=== PATIENT | male | born 1930 | race Caucasian/White ===

== ENCOUNTER 2018-07-08 10:34 | Emergency (ER) | payer MEDICARE, OTHER ==
[2018-07-08 11:09] LABS: #Eosinphils 0.1 thou/uL (0.0-0.7); #Lymphocytes 1.9 thou/uL (1.20-3.40); #Monocytes 0.6 thou/uL (0.11-0.59); #Neutrophils 2.2 thou/uL (1.40-6.50); %Basophils 0.4 % (0.0-1.0); %Eosinophils 1.3 % (0.0-10.0); %Lymphocytes 39.8 % (21.0-51.0); %Monocytes 12.5 % (0.0-10.0); Hemoglobin 12.1 g/dL (14.0-18.0); Mean Corpuscular HGB CONC 33.5 g/dL (32.0-36.0); Mean Corpuscular Hemoglobin 31.4 pg (27.0-31.0); Mean Corpuscular Volume 93.8 fL (78.0-98.0); Mean Platelet Volume 9.9 fL (7.4-10.4); Platelet Count 86 thou/uL (130-400); RBC Distribution Width 13.6 % (11.5-14.5); Red Blood Cell (RBC) Count 3.85 mill/uL (4.70-6.10); White Blood Cell (WBC) Count 4.7 thou/uL (4.8-10.8)
[2018-07-08 11:21] LABS: ALT (SGPT) 15 U/L (8-55); AST (SGOT) 21 U/L (5-34); Albumin 4.2 g/dL (3.4-4.8); Alkaline Phosphatase 70 U/L (40-150); Anion Gap 12 mmol/L (10-20); BUN (Urea Nitrogen) 17 mg/dL (8.4-25.7); Bilirubin, Total 0.6 mg/dL (0.2-1.2); CK (CPK) 91 U/L (30-200); Calc. Creatinine Clearance 0 mL/min (70-130); Calcium 9.3 mg/dL (7.8-10.44); Carbon Dioxide 28 mmol/L (23-31); Chloride 100 mmol/L (98-107); Estimated GFR-MDRD 52; Globulin 3.8 g/dL (2.4-3.5); Glucose 107 mg/dL (83-110); Lipase 54 U/L (8-78); Potassium 4.5 mmol/L (3.5-5.1); Sodium 135 mmol/L (136-145)
[2018-07-08 11:24] LABS: CKMB 2.8 ng/mL (0-6.6); Troponin I Less than 0.010 ng/mL (< 0.028)
--- NOTE | 2018-07-08 11:42 | RAD ---
PORTABLE AP CHEST: Date: 07/08/18 HISTORY: Chest pain and lightheadedness. COMPARISON: 11/03/16. FINDINGS: Postsurgical changes related to CABG are again noted. Coronary artery stents again overlie the left c ardiac border. Cardiac silhouette is magnified by projection. Pulmonary vasculature is within normal limits. The lungs are clear. Vascular calcifications seen thoracic aorta. There has been no other int erval change from the prior exam. IMPRESSION: Stable chest without evidence of an acute cardiopulmonary process. POS: TOMASZ
[2018-07-08 13:08] LABS: INR-International Normal Ratio 2.3; PTT 48.4 SEC (22.9-36.1); Prothrombin Time 25.6 SEC (12.0-14.7)
[2018-07-08 13:09] LABS: D-Dimer Test 1.04 *mcg/mL (0.27-0.43)
--- NOTE | 2018-07-08 13:51 | RAD ---
ONE VIEW ABDOMEN: Comparison: None. History: Constipation. FINDINGS: Nonspecific bowel gas pattern. No evidence of pneumoperitoneum in supine projection. Extensive degene rative changes of the lumbar spine with prominent osteophyte formation. IMPRESSION: Nonspecific bowel gas pattern. POS: TOMASZ
== END 2018-07-08 16:44 | disposition home or self-care (01) ==
LOC: ERS 10:34
DX: I48.2 Chronic atrial fibrillation (principal); I11.0 Hypertensive heart disease with heart failure; I50.9 Heart failure, unspecified; R53.83 Other fatigue; I25.10 Atherosclerotic heart disease of native coronary artery without angina pectoris; Z79.899 Other long term (current) drug therapy
CPT/HCPCS: 36415; 71045; 74018; 80053; 82553; 83690; 83735; 83880; 84443; 84484; 85025; 85379; 85610; 85730; 93005

== ENCOUNTER 2018-08-02 12:49 | Outpatient (CLI) | payer MEDICARE, OTHER ==
--- NOTE | 2018-08-04 21:15 | EKG ---
Test Reason : Blood Pressure : / mmHG Vent. Rate : 090 BPM Atrial Rate : 117 BPM P-R Int : 000 ms QRS Dur : 102 ms QT Int : 376 ms P-R-T Axes : 000 089 -08 degrees QTc Int : 459 ms Atrial fibrillation Low voltage QRS Incomplete right bundle branch block Cannot rule out Anteroseptal infarct (cited on or before 25-APR-2013) Abnormal ECG When compared with ECG of 08-JUL-2018 10:39, Nonspecific T wave abnormality, improved in Lateral leads Confirmed by Marbella BLISS ([id number]) on 08/04/2018 9:15:13 PM Referred By: SAMANTA Confirmed By:Marbella BLISS
== END 2018-08-02 12:50 | disposition home or self-care (01) ==
LOC: LABBT 12:49
PROVIDERS: ATTEND Internal Medicine Cardiovascular Disease
DX: Z01.810 Encounter for preprocedural cardiovascular examination (principal); I48.91 Unspecified atrial fibrillation
CPT/HCPCS: 93005; 93010

== ENCOUNTER 2018-08-06 06:04 | Day surgery (SDC) | payer MEDICARE, OTHER ==
[2018-08-02 13:16] VITALS: BMI 32.9
[2018-08-06] MEDS ORDERED: PROPOFOL 200 MG/20 ML VIAL ONE (12:55)
[2018-08-06] MEDS ORDERED: Lidocaine 1% PF 5 ML VIAL ONE (12:55)
--- NOTE | 2018-08-06 23:02 | ECHO ---
INDICATION: 87-year-old gentleman with paroxysmal atrial fibrillation. DESCRIPTION OF PROCEDURE: The patient was taken to the PACU. The patient stated by anesthesiology. A transesophageal probe was placed in the distal esophagus and stomach. Echocardiographic images we re obtained and the transesophageal probe was removed FINDINGS 1. Normal left ventricular systolic function. 2. Prosthetic aortic valve. 3. Moderate to severe mitral regurgitation. 4. Moderate tricuspid regurgitation. 5. Trivial aortic regurgitation. 6. No thrombus noted in the left atrium or left atrial appendage. 7. Atherosclerotic debris in the descending aorta. IMPRESSION: No formed thrombus in the left atrium or left atrial appendage.
--- NOTE | 2018-08-06 23:36 | OP ---
PROCEDURE: Direct current cardioversion. The patient remained sedated after undergoing transesophageal echo which revealed no evidence of int racardiac thrombus. With synchronized 200 joules delivered, he returned to sinus rhythm with rate in the 70s. Patient tolerated the procedure well.
== END 2018-08-06 10:18 | disposition home or self-care (01) ==
LOC: CCL 06:04
PROVIDERS: ATTEND Internal Medicine Cardiovascular Disease
PROC: B24BZZ4 Ultrasonography of Heart with Aorta, Transesophageal (ICD-10-PCS; principal; 2018-08-06)
PROC: 5A2204Z Restoration of Cardiac Rhythm, Single (ICD-10-PCS; 2018-08-06)
DX: I48.0 Paroxysmal atrial fibrillation (principal); I08.3 Combined rheumatic disorders of mitral, aortic and tricuspid valves; I70.0 Atherosclerosis of aorta; E78.5 Hyperlipidemia, unspecified; I25.10 Atherosclerotic heart disease of native coronary artery without angina pectoris; K21.9 Gastro-esophageal reflux disease without esophagitis; E78.00 Pure hypercholesterolemia, unspecified; I10 Essential (primary) hypertension; I47.1 Supraventricular tachycardia; E66.9 Obesity, unspecified; Z68.32 Body mass index [BMI] 32.0-32.9, adult; Z87.891 Personal history of nicotine dependence; Z79.01 Long term (current) use of anticoagulants; Z79.899 Other long term (current) drug therapy; Z95.1 Presence of aortocoronary bypass graft; Z95.2 Presence of prosthetic heart valve; Z95.5 Presence of coronary angioplasty implant and graft
CPT/HCPCS: 92960; 93312; J2001; J2704

== ENCOUNTER 2018-08-11 08:11 | Emergency (ER) | payer MEDICARE, OTHER ==
[2018-08-11 09:18] LABS: Band 6 % (5-11); Eosinophils 1 % (0-10); Hemoglobin 10.4 g/dL (14.0-18.0); Lymphocytes 37 % (21-51); MDiff Complete? YES; Mean Corpuscular HGB CONC 33.7 g/dL (32.0-36.0); Mean Corpuscular Hemoglobin 31.4 pg (27.0-31.0); Mean Corpuscular Volume 93.4 fL (78.0-98.0); Monocytes 16 % (0-10); Neutrophil 40 % (42-75); PLT Morphology Comment Appears Decreased; Platelet Count 78 thou/uL (130-400); RBC Distribution Width 13.5 % (11.5-14.5); Red Blood Cell (RBC) Count 3.31 mill/uL (4.70-6.10); White Blood Cell (WBC) Count 4.2 thou/uL (4.8-10.8)
[2018-08-11 09:26] LABS: ALT (SGPT) 13 U/L (8-55); AST (SGOT) 29 U/L (5-34); Albumin 3.9 g/dL (3.4-4.8); Alkaline Phosphatase 64 U/L (40-150); Anion Gap 14 mmol/L (10-20); BUN (Urea Nitrogen) 17 mg/dL (8.4-25.7); Bilirubin, Total 0.7 mg/dL (0.2-1.2); CK (CPK) 87 U/L (30-200); CKMB 1.5 ng/mL (0-6.6); Calc. Creatinine Clearance 0 mL/min (70-130); Carbon Dioxide 24 mmol/L (23-31); Chloride 100 mmol/L (98-107); Estimated GFR-MDRD 46; Globulin 3.7 g/dL (2.4-3.5); Glucose 117 mg/dL (83-110); Lipase 130 U/L (8-78); Potassium 4.8 mmol/L (3.5-5.1); Protein, Total 7.6 g/dL (5.8-8.1); Sodium 133 mmol/L (136-145); Troponin I Less than 0.010 ng/mL (< 0.028)
--- NOTE | 2018-08-11 09:27 | RAD ---
UPRIGHT PORTABLE CHEST 1 VIEW: Date: 08/11/18 HISTORY: 87-year-old male with history of chest pain, cardiac ablation last week. COMPARISON: 07/08/18. FINDINGS: Postop midline sternotomy and valvular replacement. Heart size is minimally enlarged. There appears t o be some bilateral vascular congestion with some indistinction in the infrahilar regions bilaterally . No overt confluent pneumonia. IMPRESSION: Evidence for some bilateral vascular congestion since the prior study. No confluent pneumonia or othe r acute process. POS: TOMASZ
[2018-08-11 10:50] LABS: Troponin I Less than 0.010 ng/mL (< 0.028)
--- NOTE | 2018-08-14 13:49 | EKG ---
Test Reason : CP Blood Pressure : / mmHG Vent. Rate : 070 BPM Atrial Rate : 070 BPM P-R Int : 194 ms QRS Dur : 102 ms QT Int : 412 ms P-R-T Axes : 073 064 113 degrees QTc Int : 444 ms Normal sinus rhythm Incomplete right bundle branch block Septal infarct , age undetermined Abnormal ECG Confirmed by RAFAT STOVER, WARREN ([id number]), editor farm journal REKHA CHILDS ([id number]) on 08/14/2018 1:48:25 PM Referred By: Confirmed By:WARREN DOUGLASS MD
== END 2018-08-11 11:12 | disposition home or self-care (01) ==
LOC: ERS 08:11
DX: I11.0 Hypertensive heart disease with heart failure (principal); I50.9 Heart failure, unspecified; I48.91 Unspecified atrial fibrillation; N28.9 Disorder of kidney and ureter, unspecified; I25.10 Atherosclerotic heart disease of native coronary artery without angina pectoris; Z79.899 Other long term (current) drug therapy
CPT/HCPCS: 36415; 71045; 80053; 82550; 82553; 83690; 83880; 84484; 85025; 93005

== ENCOUNTER 2018-11-02 22:48 | Inpatient (IN) | payer MEDICARE, OTHER ==
[2018-11-02] MEDS ORDERED: cefTRIAXone\\ROCEPHIN 1 GM VIAL ONE (23:41)
--- NOTE | 2018-11-02 23:46 | RAD ---
FRONTAL VIEW CHEST: 11/02/18 COMPARISON: Two view chest previous day. INDICATION: Short of breath. FINDINGS: There has been progression of opacity of the left lower lung zone. This does partially silhouette the left heart border. Right lung remains grossly clear. Cardiomediastinal silhouette is stable. IMPRESSION: Progressive opacity of the left lower lung zone compatible with pneumonia. Recommend followup to reso lution. POS: TOMASZ
[2018-11-03 00:12] LABS: PTT 56.9 SEC (22.9-36.1); Prothrombin Time 31.3 SEC (12.0-14.7)
[2018-11-03 00:15] LABS: Hemoglobin 11.3 g/dL (14.0-18.0); Mean Corpuscular HGB CONC 34.6 g/dL (32.0-36.0); Mean Corpuscular Hemoglobin 31.9 pg (27.0-31.0); Mean Corpuscular Volume 92.3 fL (78.0-98.0); RBC Distribution Width 13.8 % (11.5-14.5); Red Blood Cell (RBC) Count 3.54 mill/uL (4.70-6.10); White Blood Cell (WBC) Count 8.3 thou/uL (4.8-10.8)
[2018-11-03 00:23] LABS: ALT (SGPT) 16 U/L (8-55); AST (SGOT) 28 U/L (5-34); Alkaline Phosphatase 70 U/L (40-150); Anion Gap 14 mmol/L (10-20); BUN (Urea Nitrogen) 27 mg/dL (8.4-25.7); Calc. Creatinine Clearance 0 mL/min (70-130); Calcium 8.6 mg/dL (7.8-10.44); Carbon Dioxide 23 mmol/L (23-31); Chloride 98 mmol/L (98-107); Estimated GFR-MDRD 43; Globulin 3.8 g/dL (2.4-3.5); Glucose 127 mg/dL (83-110); Lipase 27 U/L (8-78); Magnesium 1.8 mg/dL (1.6-2.6); Potassium 4.4 mmol/L (3.5-5.1); Protein, Total 7.8 g/dL (5.8-8.1); Sodium 131 mmol/L (136-145)
[2018-11-03 00:31] LABS: Band 15 % (5-11); Lymphocytes 2 % (21-51); MDiff Complete? YES; Mean Platelet Volume 10.4 fL (7.4-10.4); Monocytes 33 % (0-10); Neutrophil 50 % (42-75); PLT Morphology Comment Appears Decreased; Platelet Count 56 thou/uL (130-400)
[2018-11-03 00:44] LABS: CKMB 4.3 ng/mL (0-6.6)
[2018-11-03] MEDS ORDERED: Amoxicillin/Potassium Clav 250 MG TAB ONE (01:02)
[2018-11-03] MEDS ORDERED: Azithromycin 500 MG VIAL ONE (01:02)
[2018-11-03 03:36] LABS: Troponin I 0.034 ng/mL (< 0.028)
[2018-11-03] MEDS ORDERED: Loperamide HCl 2 MG CAP PO PRN (08:26)
[2018-11-03] MEDS ORDERED: Artificial Tears 18 DROP/0.9 ML EA EYE PRN (08:26)
[2018-11-03] MEDS ORDERED: Sodium Chloride 0.65% Nasal 44 ML BOT EA NARE PRN (08:26)
[2018-11-03] MEDS ORDERED: Metoclopramide HCl 10 MG/2 ML VIAL IVP PRN (08:26)
[2018-11-03] MEDS ORDERED: Loratadine 10 MG TAB PO PRN (08:26)
[2018-11-03] MEDS ORDERED: HYDROcodone/Acetaminophen 5/325 mg Tablet PO PRN (08:26)
[2018-11-03] MEDS ORDERED: Eucerin (Mineral Oil/Petrolatum,White) 30 gm Jar TOP PRN (08:26)
[2018-11-03] MEDS ORDERED: Senokot S 8.6-50 MG TAB PO PRN (08:26)
[2018-11-03] MEDS ORDERED: hydrALAZINE 20 MG/ML VIAL SLOW IVP PRN (08:26)
[2018-11-03] MEDS ORDERED: Bisacodyl 10 MG SUPP PR PRN (08:26)
[2018-11-03] MEDS ORDERED: Cepastat Lozenges 1 LOZ PO PRN (08:26)
[2018-11-03] MEDS ORDERED: Calcium Carbonate 500 MG ChewTAB PO PRN (08:26)
[2018-11-03] MEDS ORDERED: WARFARIN PO PRN (08:29)
[2018-11-03] MEDS ORDERED: Famotidine 20 MG TAB ONE (09:20)
[2018-11-03] MEDS ORDERED: Digoxin 0.125 MG TAB ONE (09:20)
[2018-11-03] MEDS ORDERED: Acetaminophen 325 MG TAB ONE (09:46)
[2018-11-03] MEDS ORDERED: Levofloxacin 500 mg/D5W 100 ml Premix Bag ONE (10:15)
[2018-11-03 10:16] LABS: Bilirubin Negative (Negative); Blood, Urine Negative (Negative); Clarity CLEAR (Clear); Glucose, Urine (Dipstick) Negative (Negative); Leukocyte Negative (Negative); Nitrite Negative (Negative); Protein, Urine (Dipstick) Trace mg/dL (Neg-Trace); pH, Urine 5.5 (5.0-9.0)
--- NOTE | 2018-11-03 11:38 | HP ---
PRIMARY CARE PHYSICIAN: Ladarius Del Castillo MD. REASON FOR ADMISSION: Acute respiratory failure with hypoxia, community-acquired bacterial pneumonia, acute kidney failure, sepsis with acute organ dysfunction. HISTORY OF PRESENT ILLNESS: An 88-year-old male, who has underlying history of benign enlargement of prostate, hypertension, coronary artery disease, history of a mechanical aortic wall replacement, and chronic atrial fibrillation, who came to emergency room with complaint of cough, fever, and shortness of breath. The patient has all the symptoms going on for last 3 to 4 days. He went to Urgent Care yesterday and he was told that he has pneumonia and he was given prescription for Omnicef. The patient took couple of days antibiotic therapy at home, but he was not improving. He was having pleuritic discomfort and increasing cough with productive sputum without any hemoptysis. He was having increasing shortness of breath. He was having generalized weakness. He denies any UTI symptoms. He denies any constipation, diarrhea, melena, or hematochezia. In the emergency room, the patient was having atrial fibrillation with little bit rapid ventricular response. He was hypoxic. His routine blood test showed bandemia, thrombocytopenia, and elevated troponin. His creatinine is also elevated from his baseline. In the emergency room, the patient has received Rocephin and azithromycin initially as well as DuoNeb therapy and IV fluid and subsequently we decided to admit this patient in the hospital. REVIEW OF SYSTEMS: CONSTITUTIONAL: Negative for weight loss or gain, ability to conduct usual activities. SKIN: Negative for rash, itching. EYES: Negative for double vision, pain. ENT/MOUTH: Negative for nose bleeding, neck stiffness, pain, tenderness. CARDIOVASCULAR: Negative for palpitations, dyspnea on exertion, orthopnea. RESPIRATORY: Negative for shortness of breath, wheezing, cough, hemoptysis, fever or night sweats. GASTROINTESTINAL: Negative for poor appetite, abdominal pain, heartburn, nausea, vomiting, constipation, or diarrhea. GENITOURINARY: Negative for urgency, frequency, dysuria, nocturia. MUSCULOSKELETAL: Negative for pain, swelling. NEUROLOGIC/PSYCHIATRIC: Negative for anxiety, depression. ALLERGY/IMMUNOLOGIC: Negative for skin rash, bleeding tendency. Please see my HPI for pertinent positives and negatives. All other review of systems reviewed and negative except as mentioned in HPI. ALLERGIES: NO KNOWN DRUG ALLERGIES. CURRENT HOME MEDICATION: 1. Flomax 0.4 mg daily. 2. Toprol-XL 50 mg daily. 3. Coumadin 4 mg daily. 4. Pravastatin 20 mg at bedtime. 5. Coenzyme Q10 of 100 mg daily. 6. Ramipril 2.5 mg daily. 7. Digoxin 125 mcg daily. 8. Lasix 20 mg daily. 9. Multaq 400 mg twice daily. 10. Omnicef 300 mg twice daily. PAST MEDICAL HISTORY: Coronary artery disease, hypertension, dyslipidemia, chronic atrial fibrillation, chronic anticoagulation, history of aortic wall replacement, moderate mitral regurgitation, moderate tricuspid regurgitation, obesity, benign enlargement of prostate, dyslipidemia. PAST SURGICAL HISTORY: CABG, aortic wall replacement, cardioversion. PAST PSYCHIATRIC HISTORY: Reviewed and negative. SOCIAL HISTORY: The patient has remote tobacco abuse history. He rarely drinks alcohol. He is , lives at [place] with his . He is retired from [employer]. FAMILY HISTORY: Positive for coronary artery disease among several family members. EMERGENCY ROOM COURSE: The patient has received initially DuoNeb therapy, IV fluid, Rocephin, and azithromycin. PHYSICAL EXAMINATION: VITAL SIGNS: On arrival, blood pressure 119/76, pulse 113 and irregular, temperature 98.7, saturation 90% on room air, weight 107.9 kg. GENERAL: The patient is currently alert, awake, mild distress. HEENT: Head; normocephalic and atraumatic. Eyes; pupils round, reactive to light. Extraocular muscle intact. ENT; oropharynx within normal limits. Moist mucous membranes. No oral lesion. No pharyngeal erythema. No exudate. NECK: Supple. No JVD. No thyromegaly. No carotid bruit. LUNGS: Left lower lobe rales noted. Bronchial breath sound with occasional end-expiratory wheezing. CARDIAC: S1 and S2. Irregularly irregular. Mechanical heart sound noted. No gallop. No rub. Systolic murmur noted parasternally. ABDOMEN: Obesity present. Bowel sounds present. Nontender. Nondistended. No organomegaly. No mass. No suprapubic tenderness. BACK: Unremarkable. No CVA tenderness. EXTREMITIES: Upper extremities; passive movement of all joints are normal. Lower extremity; no edema, good distal pulsation. SKIN: No skin rash. HEMATOLOGICAL: No lymphadenopathy. PSYCHIATRIC: Normal affect. SIGNIFICANT LABORATORY DATA: EKG showing atrial fibrillation with RVR. Nonspecific ST-T changes. Chest x-ray showing left lower lobe infiltration. CBC; WBC 8.3, hemoglobin 11.3, platelets 56 with bandemia. INR 3.0. BMP; sodium 131, potassium 4.4, chloride 98, carbon dioxide 23, BUN 27, creatinine 1.54, glucose 127, calcium 8.6, magnesium 1.8, lactic acid 1.1. LFT; AST 28, ALT 16, alkaline phosphatase 70, albumin 4.0, lipase 27, CK-MB 4.3; troponin 0.031, then 0.034 and then 0.030; BNP 145.5. Urinalysis normal. ASSESSMENT AND PLAN: 1. Acute respiratory failure with hypoxia due to left lower lobe community-acquired pneumonia. We will monitor oxygen saturation while in hospital. 2. Community-acquired bacterial pneumonia. The patient was given outpatient oral antibiotic therapy and he has no improvement and he is getting worse. He has associated sepsis, acute kidney injury, and acute respiratory failure. He will require admission. We will change antibiotic therapy to cefepime and levofloxacin, DuoNeb therapy q.6 hourly, Mucinex 600 mg twice daily. 3. Acute kidney injury. The patient will be monitored in the hospital. We will repeat BMP tomorrow. We will hold on Lasix therapy. 4. Sepsis with acute organ dysfunction. The patient has bandemia. Pneumonia is the source of infection associated with acute respiratory failure and thrombocytopenia. The patient is on appropriate antibiotic therapy. We will follow up on culture results. 5. Thrombocytopenia likely due to sepsis and because of that we will hold on any heparin products. We will repeat CBC tomorrow. 6. Chronic atrial fibrillation. We will continue the patient's home medication with metoprolol, digoxin, and Multaq, and will recheck digoxin level tomorrow. 7. Benign enlargement of prostate. Continue Flomax 0.4 mg p.o. daily. 8. History of aortic wall replacement with chronic anticoagulation with warfarin. Pharmacy will manage warfarin dose. Currently, INR is therapeutic. 9. Dyslipidemia. We will continue pravastatin equivalent while in hospital. 10. Hypertension. Because of renal failure and relatively low blood pressure, we will hold on ramipril therapy. 11. Moderate mitral regurgitation and tricuspid regurgitation based on previous echocardiography. 12. Obesity with BMI of 34. 13. Deep venous thrombosis prophylaxis. The patient is already on warfarin therapy. 14. Gastrointestinal prophylaxis, Pepcid 20 mg p.o. b.i.d. CODE STATUS: The patient is full code. The patient's is surrogate decision maker. DISPOSITION PLAN: Based on clinical course, plan of care extensively discussed with the patient's family member at bedside in the emergency room. Job ID: [id number]
[2018-11-03] MEDS ORDERED: Warfarin Sodium 3 MG TAB PO SCH (17:00)
[2018-11-03] MEDS: Digoxin 0.125 MG TAB PO SCH (17:31)
[2018-11-03] MEDS: Cefepime 2 GM in Sodium Chloride 0.9% 100 ML IVPB SCH ×2 (17:31→21:23)
[2018-11-03] MEDS: Famotidine 20 MG TAB PO SCH ×2 (17:32→21:23)
[2018-11-03] MEDS: guaiFENesin ER 600 MG TAB PO SCH ×2 (17:32→21:23)
[2018-11-03] MEDS: Saccharomyces boulardii 250 MG CAP PO SCH (17:33)
[2018-11-03] MEDS: Ubidecarenone 50 MG CAP PO SCH (17:34)
[2018-11-03] MEDS: Tamsulosin HCl 0.4 MG CAP PO SCH (17:34)
[2018-11-03] MEDS: Dronedarone HCl 400 MG TAB PO SCH (17:39)
[2018-11-03] MEDS ORDERED: Pravastatin Sodium 20 MG TAB PO SCH (21:00)
[2018-11-03] MEDS: Atorvastatin Calcium 10 MG TAB PO SCH (21:23)
[2018-11-04 06:09] LABS: Prothrombin Time 43.9 SEC (12.0-14.7)
[2018-11-04 06:15] LABS: Digoxin Less than 0.15 ng/mL (0.8-2.0)
[2018-11-04 06:17] LABS: ALT (SGPT) 18 U/L (8-55); AST (SGOT) 47 U/L (5-34); Albumin 3.6 g/dL (3.4-4.8); Alkaline Phosphatase 53 U/L (40-150); Anion Gap 13 mmol/L (10-20); BUN (Urea Nitrogen) 27 mg/dL (8.4-25.7); Bilirubin, Total 0.9 mg/dL (0.2-1.2); Calc. Creatinine Clearance 57 mL/min (70-130); Calcium 8.3 mg/dL (7.8-10.44); Carbon Dioxide 24 mmol/L (23-31); Chloride 100 mmol/L (98-107); Estimated GFR-MDRD 47; Globulin 3.5 g/dL (2.4-3.5); Glucose 103 mg/dL (83-110); Potassium 4.6 mmol/L (3.5-5.1); Protein, Total 7.1 g/dL (5.8-8.1); Sodium 132 mmol/L (136-145)
[2018-11-04 06:19] LABS: INR-International Normal Ratio 4.7
[2018-11-04 06:59] LABS: Hemoglobin 9.8 g/dL (14.0-18.0); Mean Corpuscular HGB CONC 33.9 g/dL (32.0-36.0); Mean Corpuscular Hemoglobin 31.2 pg (27.0-31.0); Mean Platelet Volume 10.6 fL (7.4-10.4); Platelet Count 45 thou/uL (130-400); RBC Distribution Width 13.2 % (11.5-14.5); Red Blood Cell (RBC) Count 3.13 mill/uL (4.70-6.10); White Blood Cell (WBC) Count 4.2 thou/uL (4.8-10.8)
[2018-11-04] MEDS: Dronedarone HCl 400 MG TAB PO SCH ×2 (09:18→17:06)
[2018-11-04] MEDS: guaiFENesin ER 600 MG TAB PO SCH ×2 (09:18→21:00)
[2018-11-04] MEDS: Saccharomyces boulardii 250 MG CAP PO SCH (09:18)
[2018-11-04] MEDS: Digoxin 0.125 MG TAB PO SCH (09:19)
[2018-11-04] MEDS: Tamsulosin HCl 0.4 MG CAP PO SCH (09:20)
[2018-11-04] MEDS: Ubidecarenone 50 MG CAP PO SCH (09:20)
[2018-11-04] MEDS: Famotidine 20 MG TAB PO SCH ×2 (09:21→21:00)
[2018-11-04 09:33] LABS: Band 16 % (5-11); Lymphocytes 27 % (21-51); MDiff Complete? YES; Monocytes 17 % (0-10); Neutrophil 40 % (42-75); PLT Morphology Comment Appears Decreased; Polychromasia SLIGHT = 2-3 cells (100X) (0-2/hpf)
[2018-11-04] MEDS: Cefepime 2 GM in Sodium Chloride 0.9% 100 ML IVPB SCH ×2 (09:38→21:00)
[2018-11-04] MEDS: Acetaminophen 325 MG TAB PO PRN ×2 (11:49→21:00)
[2018-11-04 12:25] VITALS: BMI 33.2
--- NOTE | 2018-11-04 13:01 | PDOC.PN ---
- Subjective Encounter Start Date: 11/04/18 Encounter Start Time: 07:15 -: old records requested/rev pt has cough, less fever, less dyspnea, feels relatively better, but very weak, bedside - Objective Resuscitation Status - Order Detail: 11/03/18 08:16 Resuscitation Status Routine Resuscitation Status: FULL: Full Resuscitation MAR Reviewed: Yes Vital Signs & Weight: Vital Signs (12 hours) Temp Pulse Resp BP BP BP Pulse Ox 11/04/18 12:00 99.8 F H 104 H 20 107/60 96 11/04/18 09:20 141/62 H 11/04/18 09:19 101 H 11/04/18 09:14 92 L 11/04/18 07:55 98.7 F 117 H 20 141/62 H 92 L 11/04/18 06:19 110 H 22 H 91 L 11/04/18 03:14 99.2 F 102 H 18 117/53 L 93 L Weight Admit Weight 238 lb 1.588 oz Weight 238 lb 1.588 oz I&O: 11/03/18 11/04/18 11/05/18 06:59 06:59 06:59 Intake Total 200 Output Total 550 Balance -350 Result Diagrams: 11/04/18 05:26 11/04/18 05:26 EKG Reviewed by me: Yes (afib) Phys Exam - Physical Examination Constitutional: NAD HEENT: PERRLA, moist MMs, sclera anicteric Neck: no JVD, supple Respiratory: no wheezing, no rhonchi left base rales Cardiovascular: no significant murmur, irregular Gastrointestinal: soft, non-tender, no distention, positive bowel sounds obesity+ Musculoskeletal: no edema, pulses present Neurological: non-focal, normal sensation, moves all 4 limbs Lymphatic: no nodes Psychiatric: normal affect, A&O x 3 Skin: no rash, normal turgor Dx/Plan (1) Acute kidney injury Code(s): N17.9 - ACUTE KIDNEY FAILURE, UNSPECIFIED Status: Acute (2) Acute respiratory failure with hypoxia Code(s): J96.01 - ACUTE RESPIRATORY FAILURE WITH HYPOXIA Status: Acute (3) Community acquired bacterial pneumonia Code(s): J15.9 - UNSPECIFIED BACTERIAL PNEUMONIA Status: Acute Comment: due to streptococcal suspected (4) Sepsis with acute organ dysfunction Code(s): A41.9 - SEPSIS, UNSPECIFIED ORGANISM; R65.20 - SEVERE SEPSIS WITHOUT SEPTIC SHOCK Status: Acute (5) Thrombocytopenia Code(s): D69.6 - THROMBOCYTOPENIA, UNSPECIFIED Status: Acute (6) Atrial fibrillation, chronic Code(s): I48.2 - CHRONIC ATRIAL FIBRILLATION Status: Chronic (7) BPH (benign prostatic hyperplasia) Code(s): N40.0 - BENIGN PROSTATIC HYPERPLASIA WITHOUT LOWER URINRY TRACT SYMP Status: Chronic (8) Chronic anticoagulation Code(s): Z79.01 - HOSPITAL RECRUITER (CURRENT) USE OF ANTICOAGULANTS Status: Chronic (9) Coronary artery disease Code(s): I25.10 - ATHSCL HEART DISEASE OF [place] CORONARY ARTERY W/O ANG PCTRS Status: Chronic (10) Dyslipidemia Code(s): E78.5 - HYPERLIPIDEMIA, UNSPECIFIED Status: Chronic (11) H/O mechanical aortic valve replacement Code(s): Z95.2 - PRESENCE OF PROSTHETIC HEART VALVE Status: Chronic (12) Hypertension Code(s): I10 - ESSENTIAL (PRIMARY) HYPERTENSION Status: Chronic (13) Moderate mitral regurgitation by prior echocardiogram Code(s): I34.0 - NONRHEUMATIC MITRAL (VALVE) INSUFFICIENCY Status: Chronic (14) 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 Code(s): I07.1 - RHEUMATIC TRICUSPID INSUFFICIENCY Status: Chronic (15) Obesity (BMI 30-39.9) Code(s): E66.9 - OBESITY, UNSPECIFIED Status: Chronic (16) Supratherapeutic INR Code(s): R79.1 - ABNORMAL COAGULATION PROFILE Status: Acute - Plan cont current plan of care, plan discussed w/ family, continue antibiotics, 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 negative: chills, sweats, malaise, other ENT: negative: Ear Pain, Ear Discharge, Nose Pain, Nose Discharge, Nose Congestion, Mouth Pain, Mouth Swelling, Throat Pain, Throat Swelling, Other Respiratory: Cough, Shortness of Breath. negative: Dry, Hemoptysis, SOB with Excertion, Pleuritic Pain, Sputum, Wheezing Cardiovascular: negative: chest pain, palpitations, orthopnea, paroxysmal nocturnal dyspnea, edema, light headedness, other Gastrointestinal: negative: Nausea, Vomiting, Abdominal Pain, Diarrhea, Constipation, Melena, Hematochezia, Other Genitourinary: negative: Dysuria, Frequency, Incontinence, Hematuria, Retention , Other Musculoskeletal: negative: Neck Pain, Shoulder Pain, Arm Pain, Back Pain, Hand Pain, Leg Pain, Foot Pain, Other Skin: negative: Rash, Lesions, Stephen, Bruising, Other - Medications/Allergies Allergies/Adverse Reactions: Allergies Allergy/AdvReac Type Severity Reaction Status Date / Time No Known Allergies Allergy Verified 11/03/18 19:22 Medications: Current Medications Acetaminophen (Tylenol) 650 mg PO Q4H PRN PRN Reason: Headache/Fever/Mild Pain (1-3) Last Admin: 11/04/18 11:49 Dose: 650 mg Hydrocodone Bitart/Acetaminophen ([place] 5/325) 1 tab PO Q4H PRN PRN Reason: Moderate Pain (4-6) Albuterol/Ipratropium (Duoneb) 3 ml NEB [id number] [facility] Last Admin: 11/04/18 06:19 Dose: 3 ml Artificial Tears (Tears Naturale) 2 drop EA EYE PRN PRN PRN Reason: Dry Eyes Atorvastatin Calcium (Lipitor) 10 mg PO HS [facility] Last Admin: 11/03/18 21:23 Dose: 10 mg Bisacodyl (Dulcolax) 10 mg [place] DAILYPRN PRN PRN Reason: Constipation Calcium Carbonate (Tums) 1,000 mg PO Q4H PRN PRN Reason: Heartburn or Indigestion Coenzyme Q10 (Coenzyme Q10) 100 mg PO DAILY [facility] Last Admin: 11/04/18 09:20 Dose: 100 mg Digoxin (Lanoxin) 0.125 mg PO DAILY [facility] Last Admin: 11/04/18 09:19 Dose: 0.125 mg Dronedarone (Multaq) 400 mg PO BID-[facility] Last Admin: 11/04/18 09:18 Dose: Not Given Famotidine (Pepcid) 20 mg PO BID [facility] Last Admin: 11/04/18 09:21 Dose: 20 mg Guaifenesin (Mucinex) 600 mg PO Q12HR [facility] Last Admin: 11/04/18 09:18 Dose: 600 mg Guaifenesin (Robitussin Sf) 200 mg PO Q4H PRN PRN Reason: Cough Hydralazine HCl (Apresoline) 10 mg SLOW IVP Q4H PRN PRN Reason: SBP > 180 and HR < 70 Cefepime HCl 2 gm/ Sodium (Chloride) 100 mls @ 200 mls/hr IVPB Q12HR [facility] Last Admin: 11/04/18 09:38 Dose: 100 mls Levofloxacin 500 mg/ Device 100 mls @ 100 mls/hr IVPB Q24HR [facility] Last Admin: 11/04/18 10:07 Dose: 100 mls Loperamide HCl (Imodium) 2 mg PO PRN PRN PRN Reason: Diarrhea/Loose Stools Loratadine (Claritin) 10 mg PO DAILYPRN PRN PRN Reason: Sinus Symptoms Metoclopramide HCl (Reglan) 10 mg IVP Q6H PRN PRN Reason: Nausea/Vomiting Last Admin: 11/04/18 05:57 Dose: 10 mg Mineral Oil/White Petrolatum (Eucerin Cream) 0 gm TOP BIDPRN PRN PRN Reason: Dry Skin Ramipril (Altace) 2.5 mg PO DAILY [facility] Last Admin: 11/04/18 09:20 Dose: 2.5 mg Saccharomyces Boulardii (Florastor) 250 mg PO DAILY [facility] Last Admin: 11/04/18 09:18 Dose: 250 mg Senna/Docusate Sodium (Senokot S) 2 tab PO BID PRN PRN Reason: Constipation Sodium Chloride ([place] Nasal [place] 0.65%) 0 ml EA NARE QIDPRN PRN PRN Reason: Nasal Congestion Sodium Chloride (Flush - Normal Saline) 10 ml IVF Q12HR [facility] Last Admin: 11/04/18 09:28 Dose: 10 ml Sodium Chloride (Flush - Normal Saline) 10 ml IVF PRN PRN PRN Reason: Saline Flush Tamsulosin HCl (Flomax) 0.4 mg PO DAILY [facility] Last Admin: 11/04/18 09:20 Dose: 0.4 mg Throat Lozenges (Cepastat Lozenges) 1 les PO Q2H PRN PRN Reason: Sore Throat
[2018-11-04] MEDS: Atorvastatin Calcium 10 MG TAB PO SCH (21:00)
[2018-11-05 05:46] LABS: INR-International Normal Ratio 3.5; Prothrombin Time 34.8 SEC (12.0-14.7)
[2018-11-05] MEDS: Saccharomyces boulardii 250 MG CAP PO SCH (08:56)
[2018-11-05] MEDS: Cefepime 2 GM in Sodium Chloride 0.9% 100 ML IVPB SCH ×2 (08:56→20:33)
[2018-11-05] MEDS: Ubidecarenone 50 MG CAP PO SCH (08:57)
[2018-11-05] MEDS: Digoxin 0.125 MG TAB PO SCH (08:57)
[2018-11-05] MEDS: Metoprolol Tartrate 50 MG TAB PO SCH (08:58)
[2018-11-05] MEDS: Furosemide 20 MG TAB PO SCH (08:58)
[2018-11-05] MEDS: Tamsulosin HCl 0.4 MG CAP PO SCH ×2 (08:58→20:33)
[2018-11-05] MEDS: guaiFENesin ER 600 MG TAB PO SCH ×2 (08:58→20:33)
[2018-11-05] MEDS: Famotidine 20 MG TAB PO SCH ×2 (08:59→20:33)
[2018-11-05] MEDS: Dronedarone HCl 400 MG TAB PO SCH ×2 (08:59→16:55)
--- NOTE | 2018-11-05 13:26 | PDOC.PN ---
- Subjective Encounter Start Date: 11/05/18 Encounter Start Time: 07:30 Patient seen and examined. No new complaints. No overnight events Has pleurictic chest pain and cough - Objective Resuscitation Status - Order Detail: 11/03/18 08:16 Resuscitation Status Routine Resuscitation Status: FULL: Full Resuscitation MAR Reviewed: Yes Vital Signs & Weight: Vital Signs (12 hours) Temp Pulse Pulse Resp BP BP BP 11/05/18 12:52 112 H 20 11/05/18 12:22 11/05/18 12:00 98.8 F 108 H 24 H 131/76 11/05/18 09:25 95 117/71 11/05/18 08:57 131 H 153/77 H 11/05/18 08:54 11/05/18 07:54 98.9 F 112 H 18 117/76 11/05/18 06:23 122 H 20 11/05/18 06:22 11/05/18 04:00 98.4 F 126 H 19 133/73 11/05/18 02:34 100 20 Pulse Ox 11/05/18 12:52 95 11/05/18 12:22 95 11/05/18 12:00 90 L 11/05/18 09:25 11/05/18 08:57 11/05/18 08:54 95 11/05/18 07:54 91 L 11/05/18 06:23 95 11/05/18 06:22 95 11/05/18 04:00 97 11/05/18 02:34 97 Weight Admit Weight 238 lb 1.588 oz Weight 238 lb 1.588 oz I&O: 11/04/18 11/05/18 11/06/18 06:59 06:59 06:59 Intake Total 200 120 Output Total 550 Balance -350 120 Result Diagrams: 11/04/18 05:26 11/04/18 05:26 EKG Reviewed by me: Yes (afib) Phys Exam - Physical Examination Constitutional: NAD HEENT: PERRLA, moist MMs, sclera anicteric, oral pharynx no lesions Neck: no JVD, supple Respiratory: wheezing present left base rales Cardiovascular: no significant murmur, irregular Gastrointestinal: soft, non-tender, no distention, positive bowel sounds Musculoskeletal: no edema, pulses present Neurological: non-focal, normal sensation, moves all 4 limbs Lymphatic: no nodes Psychiatric: normal affect, A&O x 3 Skin: no rash, normal turgor Dx/Plan (1) Acute kidney injury Code(s): N17.9 - ACUTE KIDNEY FAILURE, UNSPECIFIED Status: Acute (2) Acute respiratory failure with hypoxia Code(s): J96.01 - ACUTE RESPIRATORY FAILURE WITH HYPOXIA Status: Acute (3) Community acquired bacterial pneumonia Code(s): J15.9 - UNSPECIFIED BACTERIAL PNEUMONIA Status: Acute Comment: due to streptococcal suspected (4) Sepsis with acute organ dysfunction Code(s): A41.9 - SEPSIS, UNSPECIFIED ORGANISM; R65.20 - SEVERE SEPSIS WITHOUT SEPTIC SHOCK Status: Acute (5) Thrombocytopenia Code(s): D69.6 - THROMBOCYTOPENIA, UNSPECIFIED Status: Acute (6) Atrial fibrillation, chronic Code(s): I48.2 - CHRONIC ATRIAL FIBRILLATION Status: Chronic (7) BPH (benign prostatic hyperplasia) Code(s): N40.0 - BENIGN PROSTATIC HYPERPLASIA WITHOUT LOWER URINRY TRACT SYMP Status: Chronic (8) Chronic anticoagulation Code(s): Z79.01 - 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 OF ANTICOAGULANTS Status: Chronic (9) Coronary artery disease Code(s): I25.10 - ATHSCL HEART DISEASE OF [place] CORONARY ARTERY W/O ANG PCTRS Status: Chronic (10) Dyslipidemia Code(s): E78.5 - HYPERLIPIDEMIA, UNSPECIFIED Status: Chronic (11) H/O mechanical aortic valve replacement Code(s): Z95.2 - PRESENCE OF PROSTHETIC HEART VALVE Status: Chronic (12) Hypertension Code(s): I10 - ESSENTIAL (PRIMARY) HYPERTENSION Status: Chronic (13) Moderate mitral regurgitation by prior echocardiogram Code(s): I34.0 - NONRHEUMATIC MITRAL (VALVE) INSUFFICIENCY Status: Chronic (14) 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 * medication reviewed as below * symptomatic treatment * will need placement Review of Systems - Review of Systems Constitutional: weakness. negative: fever, chills, sweats, malaise, other Respiratory: Cough, Shortness of Breath, SOB with Excertion, Pleuritic Pain, Wheezing. negative: Dry, Hemoptysis, Sputum Cardiovascular: negative: chest pain, palpitations, orthopnea, paroxysmal nocturnal dyspnea, edema, light headedness, other Gastrointestinal: negative: Nausea, Vomiting, Abdominal Pain, Diarrhea, Constipation, Melena, Hematochezia, Other Genitourinary: negative: Dysuria, Frequency, Incontinence, Hematuria, Retention , Other Musculoskeletal: negative: Neck Pain, Shoulder Pain, Arm Pain, Back Pain, Hand Pain, Leg Pain, Foot Pain, Other Skin: negative: Rash, Lesions, Stephen, Bruising, Other - Medications/Allergies Allergies/Adverse Reactions: Allergies Allergy/AdvReac Type Severity Reaction Status Date / Time No Known Allergies Allergy Verified 11/03/18 19:22 Medications: Current Medications Acetaminophen (Tylenol) 650 mg PO Q4H PRN PRN Reason: Headache/Fever/Mild Pain (1-3) Last Admin: 11/04/18 21:00 Dose: 650 mg Hydrocodone Bitart/Acetaminophen ([place] 5/325) 1 tab PO Q4H PRN PRN Reason: Moderate Pain (4-6) Albuterol/Ipratropium (Duoneb) 3 ml NEB [id number] [facility] Last Admin: 11/05/18 12:52 Dose: 3 ml Albuterol/Ipratropium (Duoneb) 3 ml NEB Q4H PRN PRN Reason: SOB &/or Wheezing Last Admin: 11/05/18 02:34 Dose: 3 ml Artificial Tears (Tears Naturale) 2 drop EA EYE PRN PRN PRN Reason: Dry Eyes Atorvastatin Calcium (Lipitor) 10 mg PO HS [facility] Bisacodyl (Dulcolax) 10 mg [place] DAILYPRN PRN PRN Reason: Constipation Calcium Carbonate (Tums) 1,000 mg PO Q4H PRN PRN Reason: Heartburn or Indigestion Coenzyme Q10 (Coenzyme Q10) 100 mg PO DAILY [facility] Last Admin: 11/05/18 08:57 Dose: 100 mg Digoxin (Lanoxin) 0.125 mg PO DAILY [facility] Last Admin: 11/05/18 08:57 Dose: 0.125 mg Dronedarone (Multaq) 200 mg PO BID-[facility] Last Admin: 11/05/18 08:59 Dose: 200 mg Famotidine (Pepcid) 20 mg PO BID [facility] Last Admin: 11/05/18 08:59 Dose: 20 mg Furosemide (Lasix) 20 mg PO DAILY [facility] Last Admin: 11/05/18 08:58 Dose: 20 mg Guaifenesin (Mucinex) 600 mg PO Q12HR [facility] Last Admin: 11/05/18 08:58 Dose: 600 mg Guaifenesin (Robitussin Sf) 200 mg PO Q4H PRN PRN Reason: Cough Hydralazine HCl (Apresoline) 10 mg SLOW IVP Q4H PRN PRN Reason: SBP > 180 and HR < 70 Cefepime HCl 2 gm/ Sodium (Chloride) 100 mls @ 200 mls/hr IVPB Q12HR [facility] Last Admin: 11/05/18 08:56 Dose: 100 mls Levofloxacin 500 mg/ Device 100 mls @ 100 mls/hr IVPB Q24HR [facility] Last Admin: 11/05/18 10:14 Dose: 100 mls Loperamide HCl (Imodium) 2 mg PO PRN PRN PRN Reason: Diarrhea/Loose Stools Loratadine (Claritin) 10 mg PO DAILYPRN PRN PRN Reason: Sinus Symptoms Methylprednisolone Sodium Succinate (Solu-Medrol) 40 mg IVP Q6H [facility] Metoclopramide HCl (Reglan) 10 mg IVP Q6H PRN PRN Reason: Nausea/Vomiting Last Admin: 11/04/18 05:57 Dose: 10 mg Metoprolol Tartrate (Lopressor) 50 mg PO DAILY [facility] Last Admin: 11/05/18 08:58 Dose: 50 mg Mineral Oil/White Petrolatum (Eucerin Cream) 0 gm TOP BIDPRN PRN PRN Reason: Dry Skin Ramipril (Altace) 2.5 mg PO DAILY [facility] Last Admin: 11/05/18 08:57 Dose: 2.5 mg Saccharomyces Boulardii (Florastor) 250 mg PO DAILY [facility] Last Admin: 11/05/18 08:56 Dose: 250 mg Senna/Docusate Sodium (Senokot S) 2 tab PO BID PRN PRN Reason: Constipation Sodium Chloride ([place] Nasal [place] 0.65%) 0 ml EA NARE QIDPRN PRN PRN Reason: Nasal Congestion Sodium Chloride (Flush - Normal Saline) 10 ml IVF Q12HR [facility] Last Admin: 11/05/18 08:59 Dose: 10 ml Sodium Chloride (Flush - Normal Saline) 10 ml IVF PRN PRN PRN Reason: Saline Flush Tamsulosin HCl (Flomax) 0.4 mg PO BID [facility] Last Admin: 11/05/18 08:58 Dose: 0.4 mg Throat Lozenges (Cepastat Lozenges) 1 les PO Q2H PRN PRN Reason: Sore Throat
[2018-11-05] MEDS: Warfarin Sodium 2 MG TAB PO SCH (16:56)
[2018-11-05] MEDS: Atorvastatin Calcium 10 MG TAB PO SCH (20:33)
[2018-11-05] MEDS: Diabetic Tussin 200 MG/10 ML UDCUP PO PRN (23:04)
[2018-11-06] MEDS ORDERED: Sodium Chloride 0.9% 1,000 ML IV SCH (00:30)
[2018-11-06 06:10] LABS: INR-International Normal Ratio 3.6
[2018-11-06 06:25] LABS: Anion Gap 12 mmol/L (10-20); BUN (Urea Nitrogen) 31 mg/dL (8.4-25.7); Calc. Creatinine Clearance 59 mL/min (70-130); Calcium 8.2 mg/dL (7.8-10.44); Carbon Dioxide 24 mmol/L (23-31); Chloride 99 mmol/L (98-107); Estimated GFR-MDRD 49; Glucose 154 mg/dL (83-110); Potassium 4.1 mmol/L (3.5-5.1); Sodium 131 mmol/L (136-145)
[2018-11-06 07:05] LABS: Hemoglobin 9.4 g/dL (14.0-18.0); Mean Corpuscular Hemoglobin 31.3 pg (27.0-31.0); Mean Platelet Volume 10.6 fL (7.4-10.4); Platelet Count 54 thou/uL (130-400); RBC Distribution Width 13.5 % (11.5-14.5); Red Blood Cell (RBC) Count 3.02 mill/uL (4.70-6.10); White Blood Cell (WBC) Count 1.8 thou/uL (4.8-10.8)
[2018-11-06 07:06] LABS: #Lymphocytes 0.4 thou/uL (1.20-3.40); #Monocytes 0.2 thou/uL (0.11-0.59); #Neutrophils 1.3 thou/uL (1.40-6.50); %Eosinophils 0.1 % (0.0-10.0); %Lymphocytes 20.4 % (21.0-51.0); %Monocytes 11.2 % (0.0-10.0); %Neutrophils 68.3 % (42.0-75.0)
[2018-11-06 07:25] LABS: MDiff Complete? YES; PLT Morphology Comment Appears Decreased; Polychromasia SLIGHT = 2-3 cells (100X) (0-2/hpf)
[2018-11-06] MEDS: Ubidecarenone 50 MG CAP PO SCH (09:58)
[2018-11-06] MEDS: Famotidine 20 MG TAB PO SCH ×2 (09:58→21:12)
[2018-11-06] MEDS: Dronedarone HCl 400 MG TAB PO SCH ×2 (09:58→18:20)
[2018-11-06] MEDS: Digoxin 0.125 MG TAB PO SCH (09:58)
[2018-11-06] MEDS: Saccharomyces boulardii 250 MG CAP PO SCH (09:58)
[2018-11-06] MEDS: Tamsulosin HCl 0.4 MG CAP PO SCH (10:01)
[2018-11-06] MEDS: Furosemide 20 MG TAB PO SCH (10:01)
[2018-11-06] MEDS: Cefepime 2 GM in Sodium Chloride 0.9% 100 ML IVPB SCH ×2 (10:01→21:12)
[2018-11-06] MEDS: guaiFENesin ER 600 MG TAB PO SCH ×2 (10:01→21:12)
[2018-11-06] MEDS: Metoprolol Tartrate 50 MG TAB PO SCH (10:02)
--- NOTE | 2018-11-06 10:24 | RAD ---
CHEST TWO VIEWS: History: Pneumonia. Comparison: 11-01-18 IMPRESSION: Left lower lobe airspace opacity appears less prominent than on a comparison dated 11-01-18 and likely reflects improving pneumonia. Continued radiographic follow up is recommended. Aortic valvular replacement is unchanged in position. Midline sternotomy changes and cardiomegaly are stable. Chronic lung changes bilaterally are stable. 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 POS: [facility]
--- NOTE | 2018-11-06 10:35 | PDOC.PN ---
- Subjective Encounter Start Date: 11/06/18 Encounter Start Time: 07:20 -: old records requested/rev pt was given fluid bolus for low BP last night, today he has no wheezing, less cough - Objective Resuscitation Status - Order Detail: 11/03/18 08:16 Resuscitation Status Routine Resuscitation Status: FULL: Full Resuscitation MAR Reviewed: Yes Vital Signs & Weight: Vital Signs (12 hours) Temp Pulse Resp BP BP BP Pulse Ox 11/06/18 10:00 90/47 L 11/06/18 09:59 119/57 L 11/06/18 09:58 86 11/06/18 07:59 97.4 F L 86 20 119/57 L 91 L 11/06/18 06:29 92 L 11/06/18 06:28 72 20 92 L 11/06/18 04:00 97.6 F 16 102/51 L 93 L 11/06/18 01:30 110/59 L 11/06/18 00:58 104/51 L 11/06/18 00:40 98/54 L 11/06/18 00:00 97.5 F L 87 16 84/41 L 91 L Weight Admit Weight 238 lb 1.588 oz Weight 238 lb 1.588 oz I&O: 11/05/18 11/06/18 11/07/18 06:59 06:59 06:59 Intake Total 120 2160 Balance 120 2160 Result Diagrams: 11/06/18 05:47 11/06/18 05:47 Radiology Reviewed by me: Yes (chest xray reviewed ) EKG Reviewed by me: Yes (afib) Phys Exam - Physical Examination Constitutional: NAD HEENT: PERRLA, moist MMs, sclera anicteric Neck: no JVD, supple Respiratory: no wheezing, no rhonchi left base rales Cardiovascular: no significant murmur, irregular Gastrointestinal: soft, non-tender, no distention, positive bowel sounds Musculoskeletal: no edema, pulses present Neurological: non-focal, normal sensation, moves all 4 limbs Lymphatic: no nodes Psychiatric: normal affect Skin: no rash, normal turgor Dx/Plan (1) Acute kidney injury Code(s): N17.9 - ACUTE KIDNEY FAILURE, UNSPECIFIED Status: Acute (2) Acute respiratory failure with hypoxia Code(s): J96.01 - ACUTE RESPIRATORY FAILURE WITH HYPOXIA Status: Acute (3) Community acquired bacterial pneumonia Code(s): J15.9 - UNSPECIFIED BACTERIAL PNEUMONIA Status: Acute Comment: due to streptococcal suspected (4) Sepsis with acute organ dysfunction Code(s): A41.9 - SEPSIS, UNSPECIFIED ORGANISM; R65.20 - SEVERE SEPSIS WITHOUT SEPTIC SHOCK Status: Acute (5) Thrombocytopenia Code(s): D69.6 - THROMBOCYTOPENIA, UNSPECIFIED Status: Acute (6) Atrial fibrillation, chronic Code(s): I48.2 - CHRONIC ATRIAL FIBRILLATION Status: Chronic (7) BPH (benign prostatic hyperplasia) Code(s): N40.0 - BENIGN PROSTATIC HYPERPLASIA WITHOUT LOWER URINRY TRACT SYMP Status: Chronic (8) Chronic anticoagulation Code(s): 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 Status: Chronic (9) Coronary artery disease Code(s): I25.10 - ATHSCL HEART DISEASE OF [place] CORONARY ARTERY W/O ANG PCTRS Status: Chronic (10) Dyslipidemia Code(s): E78.5 - HYPERLIPIDEMIA, UNSPECIFIED Status: Chronic (11) H/O mechanical aortic valve replacement Code(s): Z95.2 - PRESENCE OF PROSTHETIC HEART VALVE Status: Chronic (12) Hypertension Code(s): I10 - ESSENTIAL (PRIMARY) HYPERTENSION Status: Chronic (13) Moderate mitral regurgitation by prior echocardiogram Code(s): I34.0 - NONRHEUMATIC MITRAL (VALVE) INSUFFICIENCY Status: Chronic (14) 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 Code(s): I07.1 - RHEUMATIC TRICUSPID INSUFFICIENCY Status: Chronic (15) Obesity (BMI 30-39.9) Code(s): E66.9 - OBESITY, UNSPECIFIED Status: Chronic (16) Supratherapeutic INR Code(s): R79.1 - ABNORMAL COAGULATION PROFILE Status: Acute (17) Pancytopenia Code(s): D61.818 - OTHER PANCYTOPENIA Status: Acute - Plan cont current plan of care, plan discussed w/ family, continue antibiotics, PT/OT , 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 Review of Systems - Review of Systems Constitutional: negative: fever, chills, sweats, weakness, malaise, other Eyes: negative: Pain, Vision Change, Conjunctivae Inflammation, Eyelid Inflammation, Redness, Other ENT: negative: Ear Pain, Ear Discharge, Nose Pain, Nose Discharge, Nose Congestion, Mouth Pain, Mouth Swelling, Throat Pain, Throat Swelling, Other Respiratory: Cough, Sputum. negative: Dry, Shortness of Breath, Hemoptysis, SOB with Excertion, Pleuritic Pain, Wheezing Cardiovascular: negative: chest pain, palpitations, orthopnea, paroxysmal nocturnal dyspnea, edema, light headedness, other Gastrointestinal: negative: Nausea, Vomiting, Abdominal Pain, Diarrhea, Constipation, Melena, Hematochezia, Other Genitourinary: negative: Dysuria, Frequency, Incontinence, Hematuria, Retention , Other Musculoskeletal: negative: Neck Pain, Shoulder Pain, Arm Pain, Back Pain, Hand Pain, Leg Pain, Foot Pain, Other Skin: negative: Rash, Lesions, Stephen, Bruising, Other - Medications/Allergies Allergies/Adverse Reactions: Allergies Allergy/AdvReac Type Severity Reaction Status Date / Time No Known Allergies Allergy Verified 11/03/18 19:22 Medications: Current Medications Acetaminophen (Tylenol) 650 mg PO Q4H PRN PRN Reason: Headache/Fever/Mild Pain (1-3) Last Admin: 11/04/18 21:00 Dose: 650 mg Hydrocodone Bitart/Acetaminophen ([place] 5/325) 1 tab PO Q4H PRN PRN Reason: Moderate Pain (4-6) Albuterol/Ipratropium (Duoneb) 3 ml NEB [id number] [facility] Last Admin: 11/06/18 06:28 Dose: 3 ml Albuterol/Ipratropium (Duoneb) 3 ml NEB Q4H PRN PRN Reason: SOB &/or Wheezing Last Admin: 11/05/18 02:34 Dose: 3 ml Artificial Tears (Tears Naturale) 2 drop EA EYE PRN PRN PRN Reason: Dry Eyes Atorvastatin Calcium (Lipitor) 10 mg PO HS [facility] [place] Last Admin: 11/05/18 20:33 Dose: 10 mg Bisacodyl (Dulcolax) 10 mg [place] DAILYPRN PRN PRN Reason: Constipation Calcium Carbonate (Tums) 1,000 mg PO Q4H PRN PRN Reason: Heartburn or Indigestion Coenzyme Q10 (Coenzyme Q10) 100 mg PO DAILY [facility] [place] Last Admin: 11/06/18 09:58 Dose: 100 mg Digoxin (Lanoxin) 0.125 mg PO DAILY [facility] [place] Last Admin: 11/06/18 09:58 Dose: 0.125 mg Dronedarone (Multaq) 200 mg PO BID-[facility] Last Admin: 11/06/18 09:58 Dose: 200 mg Famotidine (Pepcid) 20 mg PO BID [facility] [place] Last Admin: 11/06/18 09:58 Dose: 20 mg Furosemide (Lasix) 20 mg PO DAILY [facility] [place] Last Admin: 11/06/18 10:01 Dose: 20 mg Guaifenesin (Mucinex) 600 mg PO Q12HR [facility] [place] Last Admin: 11/06/18 10:01 Dose: 600 mg Guaifenesin (Robitussin Sf) 200 mg PO Q4H PRN PRN Reason: Cough Last Admin: 11/05/18 23:04 Dose: 200 mg Hydralazine HCl (Apresoline) 10 mg SLOW IVP Q4H PRN PRN Reason: SBP > 180 and HR < 70 Cefepime HCl 2 gm/ Sodium (Chloride) 100 mls @ 200 mls/hr IVPB Q12HR [facility] [place] Last Admin: 11/06/18 10:01 Dose: 100 mls Levofloxacin 500 mg/ Device 100 mls @ 100 mls/hr IVPB Q24HR [facility] [place] Last Admin: 11/05/18 10:14 Dose: 100 mls Loperamide HCl (Imodium) 2 mg PO PRN PRN PRN Reason: Diarrhea/Loose Stools Loratadine (Claritin) 10 mg PO DAILYPRN PRN PRN Reason: Sinus Symptoms Methylprednisolone Sodium Succinate (Solu-Medrol) 40 mg IVP 0200,0800,1400, 2000 [facility] [place] Last Admin: 11/06/18 09:59 Dose: 40 mg Metoclopramide HCl (Reglan) 10 mg IVP Q6H PRN PRN Reason: Nausea/Vomiting Last Admin: 11/04/18 05:57 Dose: 10 mg Metoprolol Tartrate (Lopressor) 50 mg PO DAILY [facility] [place] Last Admin: 11/06/18 10:02 Dose: Not Given Mineral Oil/White Petrolatum (Eucerin Cream) 0 gm TOP BIDPRN PRN PRN Reason: Dry Skin Ramipril (Altace) 2.5 mg PO DAILY [facility] [place] Last Admin: 11/06/18 09:59 Dose: Not Given Saccharomyces Boulardii (Florastor) 250 mg PO DAILY [facility] [place] Last Admin: 11/06/18 09:58 Dose: 250 mg Senna/Docusate Sodium (Senokot S) 2 tab PO BID PRN PRN Reason: Constipation Sodium Chloride ([place] Nasal [place] 0.65%) 0 ml EA NARE QIDPRN PRN PRN Reason: Nasal Congestion Sodium Chloride (Flush - Normal Saline) 10 ml IVF Q12HR [facility] [place] Last Admin: 11/06/18 10:02 Dose: 10 ml Sodium Chloride (Flush - Normal Saline) 10 ml IVF PRN PRN PRN Reason: Saline Flush Tamsulosin HCl (Flomax) 0.4 mg PO DAILY [facility] [place] Last Admin: 11/06/18 10:01 Dose: 0.4 mg Throat Lozenges (Cepastat Lozenges) 1 les PO Q2H PRN PRN Reason: Sore Throat Warfarin Sodium (Coumadin) 2 mg PO 1700 [facility] [place] Last Admin: 11/05/18 16:56 Dose: 2 mg
[2018-11-06] MEDS: Warfarin Sodium 2 MG TAB PO SCH (18:21)
[2018-11-06] MEDS: Diabetic Tussin 200 MG/10 ML UDCUP PO PRN (21:11)
[2018-11-06] MEDS: Atorvastatin Calcium 10 MG TAB PO SCH (21:12)
[2018-11-07 05:45] LABS: Prothrombin Time 42.4 SEC (12.0-14.7)
[2018-11-07 05:57] LABS: INR-International Normal Ratio 4.5
[2018-11-07 05:58] LABS: #Lymphocytes 0.3 thou/uL (1.20-3.40); #Monocytes 0.3 thou/uL (0.11-0.59); %Eosinophils 0.2 % (0.0-10.0); %Lymphocytes 9.2 % (21.0-51.0); %Monocytes 8.3 % (0.0-10.0); %Neutrophils 82.3 % (42.0-75.0); Hemoglobin 9.1 g/dL (14.0-18.0); Mean Corpuscular HGB CONC 33.3 g/dL (32.0-36.0); Mean Corpuscular Hemoglobin 30.6 pg (27.0-31.0); Mean Corpuscular Volume 91.8 fL (78.0-98.0); Mean Platelet Volume 10.9 fL (7.4-10.4); Platelet Count 72 thou/uL (130-400); RBC Distribution Width 13.6 % (11.5-14.5); Red Blood Cell (RBC) Count 2.98 mill/uL (4.70-6.10); White Blood Cell (WBC) Count 3.7 thou/uL (4.8-10.8)
[2018-11-07 06:35] LABS: ALT (SGPT) 35 U/L (8-55); AST (SGOT) 61 U/L (5-34); Albumin 3.4 g/dL (3.4-4.8); Alkaline Phosphatase 46 U/L (40-150); Anion Gap 13 mmol/L (10-20); BUN (Urea Nitrogen) 41 mg/dL (8.4-25.7); Calc. Creatinine Clearance 51 mL/min (70-130); Calcium 8.1 mg/dL (7.8-10.44); Carbon Dioxide 21 mmol/L (23-31); Chloride 97 mmol/L (98-107); Estimated GFR-MDRD 42; Globulin 3.2 g/dL (2.4-3.5); Glucose 168 mg/dL (83-110); Potassium 4.3 mmol/L (3.5-5.1); Protein, Total 6.6 g/dL (5.8-8.1); Sodium 127 mmol/L (136-145)
--- NOTE | 2018-11-07 09:37 | PDOC.PN ---
- Subjective Encounter Start Date: 11/07/18 Encounter Start Time: 07:30 Patient seen and examined. No new complaints. No overnight events - Objective Resuscitation Status - Order Detail: 11/03/18 08:16 Resuscitation Status Routine Resuscitation Status: FULL: Full Resuscitation MAR Reviewed: Yes Vital Signs & Weight: Vital Signs (12 hours) Temp Pulse Resp BP Pulse Ox 11/07/18 07:55 85 20 11/07/18 07:49 97.4 F L 95 22 H 136/70 95 11/07/18 04:00 97.8 F 103 H 20 134/65 93 L 11/07/18 00:56 99 20 93 L 11/07/18 00:00 97.5 F L 95 19 118/54 L 95 Weight Admit Weight 238 lb 1.588 oz Weight 238 lb 1.588 oz I&O: 11/06/18 11/07/18 11/08/18 06:59 06:59 06:59 Intake Total 2160 1400 Balance 2160 1400 Result Diagrams: 11/07/18 04:32 11/07/18 04:32 EKG Reviewed by me: Yes Phys Exam - Physical Examination Constitutional: NAD HEENT: PERRLA, moist MMs, sclera anicteric Neck: no JVD, supple Respiratory: no wheezing, no rales, no rhonchi Cardiovascular: no significant murmur, no rub, irregular Gastrointestinal: soft, non-tender, no distention, positive bowel sounds Musculoskeletal: no edema, pulses present Neurological: non-focal, normal sensation Lymphatic: no nodes Psychiatric: normal affect, A&O x 3 Skin: no rash, normal turgor Dx/Plan (1) Acute kidney injury Code(s): N17.9 - ACUTE KIDNEY FAILURE, UNSPECIFIED Status: Acute (2) Acute respiratory failure with hypoxia Code(s): J96.01 - ACUTE RESPIRATORY FAILURE WITH HYPOXIA Status: Acute (3) Community acquired bacterial pneumonia Code(s): J15.9 - UNSPECIFIED BACTERIAL PNEUMONIA Status: Acute Comment: due to streptococcal suspected (4) Sepsis with acute organ dysfunction Code(s): A41.9 - SEPSIS, UNSPECIFIED ORGANISM; R65.20 - SEVERE SEPSIS WITHOUT SEPTIC SHOCK Status: Acute (5) Thrombocytopenia Code(s): D69.6 - THROMBOCYTOPENIA, UNSPECIFIED Status: Acute (6) Atrial fibrillation, chronic Code(s): I48.2 - CHRONIC ATRIAL FIBRILLATION Status: Chronic (7) BPH (benign prostatic hyperplasia) Code(s): N40.0 - BENIGN PROSTATIC HYPERPLASIA WITHOUT LOWER URINRY TRACT SYMP Status: Chronic (8) Chronic anticoagulation Code(s): 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 Status: Chronic (9) Coronary artery disease Code(s): I25.10 - ATHSCL HEART DISEASE OF [place] CORONARY ARTERY W/O ANG PCTRS Status: Chronic (10) Dyslipidemia Code(s): E78.5 - HYPERLIPIDEMIA, UNSPECIFIED Status: Chronic (11) H/O mechanical aortic valve replacement Code(s): Z95.2 - PRESENCE OF PROSTHETIC HEART VALVE Status: Chronic (12) Hypertension Code(s): I10 - ESSENTIAL (PRIMARY) HYPERTENSION Status: Chronic (13) Moderate mitral regurgitation by prior echocardiogram Code(s): I34.0 - NONRHEUMATIC MITRAL (VALVE) INSUFFICIENCY Status: Chronic (14) 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 * hold warfarin Review of Systems - Review of Systems ENT: negative: Ear Pain, Ear Discharge, Nose Pain, Nose Discharge, Nose Congestion, Mouth Pain, Mouth Swelling, Throat Pain, Throat Swelling, Other Respiratory: negative: Cough, Dry, Shortness of Breath, Hemoptysis, SOB with Excertion, Pleuritic Pain, Sputum, Wheezing Cardiovascular: negative: chest pain, palpitations, orthopnea, paroxysmal nocturnal dyspnea, edema, light headedness, other Gastrointestinal: negative: Nausea, Vomiting, Abdominal Pain, Diarrhea, Constipation, Melena, Hematochezia, Other Genitourinary: negative: Dysuria, Frequency, Incontinence, Hematuria, Retention , Other Musculoskeletal: negative: Neck Pain, Shoulder Pain, Arm Pain, Back Pain, Hand Pain, Leg Pain, Foot Pain, Other Skin: negative: Rash, Lesions, Stephen, Bruising, Other - Medications/Allergies Allergies/Adverse Reactions: Allergies Allergy/AdvReac Type Severity Reaction Status Date / Time No Known Allergies Allergy Verified 11/03/18 19:22 Medications: Current Medications Acetaminophen (Tylenol) 650 mg PO Q4H PRN PRN Reason: Headache/Fever/Mild Pain (1-3) Last Admin: 11/04/18 21:00 Dose: 650 mg Hydrocodone Bitart/Acetaminophen ([place] 5/325) 1 tab PO Q4H PRN PRN Reason: Moderate Pain (4-6) Albuterol/Ipratropium (Duoneb) 3 ml NEB [id number] [facility] Last Admin: 11/07/18 07:55 Dose: 3 ml Albuterol/Ipratropium (Duoneb) 3 ml NEB Q4H PRN PRN Reason: SOB &/or Wheezing Last Admin: 11/05/18 02:34 Dose: 3 ml Artificial Tears (Tears Naturale) 2 drop EA EYE PRN PRN PRN Reason: Dry Eyes Atorvastatin Calcium (Lipitor) 10 mg PO HS [facility] Last Admin: 11/06/18 21:12 Dose: 10 mg Bisacodyl (Dulcolax) 10 mg MO DAILYPRN PRN PRN Reason: Constipation Calcium Carbonate (Tums) 1,000 mg PO Q4H PRN PRN Reason: Heartburn or Indigestion Coenzyme Q10 (Coenzyme Q10) 100 mg PO DAILY [facility] Last Admin: 11/06/18 09:58 Dose: 100 mg Digoxin (Lanoxin) 0.125 mg PO DAILY [facility] Last Admin: 11/06/18 09:58 Dose: 0.125 mg Dronedarone (Multaq) 200 mg PO BID[facility] Last Admin: 11/06/18 18:20 Dose: 200 mg Famotidine (Pepcid) 20 mg PO BID [facility] Last Admin: 11/06/18 21:12 Dose: 20 mg Furosemide (Lasix) 20 mg PO DAILY [facility] Last Admin: 11/06/18 10:01 Dose: 20 mg Guaifenesin (Mucinex) 600 mg PO Q12HR [facility] Last Admin: 11/06/18 21:12 Dose: 600 mg Guaifenesin (Robitussin Sf) 200 mg PO Q4H PRN PRN Reason: Cough Last Admin: 11/06/18 21:11 Dose: 200 mg Hydralazine HCl (Apresoline) 10 mg SLOW IVP Q4H PRN PRN Reason: SBP > 180 and HR < 70 Cefepime HCl 2 gm/ Sodium (Chloride) 100 mls @ 200 mls/hr IVPB Q12HR [facility] Last Admin: 11/06/18 21:12 Dose: 100 mls Levofloxacin 500 mg/ Device 100 mls @ 100 mls/hr IVPB Q24HR [facility] Last Admin: 11/06/18 11:19 Dose: 100 mls Loperamide HCl (Imodium) 2 mg PO PRN PRN PRN Reason: Diarrhea/Loose Stools Loratadine (Claritin) 10 mg PO DAILYPRN PRN PRN Reason: Sinus Symptoms Metoclopramide HCl (Reglan) 10 mg IVP Q6H PRN PRN Reason: Nausea/Vomiting Last Admin: 11/04/18 05:57 Dose: 10 mg Metoprolol Tartrate (Lopressor) 50 mg PO DAILY [facility] Last Admin: 11/06/18 10:02 Dose: Not Given Mineral Oil/White Petrolatum (Eucerin Cream) 0 gm TOP BIDPRN PRN PRN Reason: Dry Skin Miscellaneous Medication (Pharmacy To Dose) 1 each PO ONE PRN PRN Reason: DOSING Stop: 12/07/18 06:07 Ramipril (Altace) 2.5 mg PO DAILY [facility] Last Admin: 11/06/18 09:59 Dose: Not Given Saccharomyces Boulardii (Florastor) 250 mg PO DAILY [facility] Last Admin: 11/06/18 09:58 Dose: 250 mg Senna/Docusate Sodium (Senokot S) 2 tab PO BID PRN PRN Reason: Constipation Sodium Chloride ([place] Nasal [place] 0.65%) 0 ml EA NARE QIDPRN PRN PRN Reason: Nasal Congestion Sodium Chloride (Flush - Normal Saline) 10 ml IVF Q12HR [facility] Last Admin: 11/06/18 21:12 Dose: 10 ml Sodium Chloride (Flush - Normal Saline) 10 ml IVF PRN PRN PRN Reason: Saline Flush Tamsulosin HCl (Flomax) 0.4 mg PO DAILY [facility] Last Admin: 11/06/18 10:01 Dose: 0.4 mg Throat Lozenges (Cepastat Lozenges) 1 les PO Q2H PRN PRN Reason: Sore Throat Warfarin Sodium (Coumadin) 2 mg PO 1700 [place]
[2018-11-07] MEDS: Digoxin 0.125 MG TAB PO SCH (09:56)
[2018-11-07] MEDS: Cefepime 2 GM in Sodium Chloride 0.9% 100 ML IVPB SCH (09:56)
[2018-11-07] MEDS: Dronedarone HCl 400 MG TAB PO SCH (09:57)
[2018-11-07] MEDS: Saccharomyces boulardii 250 MG CAP PO SCH (09:58)
[2018-11-07] MEDS: Ubidecarenone 50 MG CAP PO SCH (09:58)
[2018-11-07] MEDS: Furosemide 20 MG TAB PO SCH (09:59)
[2018-11-07] MEDS: guaiFENesin ER 600 MG TAB PO SCH (09:59)
[2018-11-07] MEDS: Famotidine 20 MG TAB PO SCH (09:59)
[2018-11-07] MEDS: Tamsulosin HCl 0.4 MG CAP PO SCH (09:59)
[2018-11-07] MEDS: Metoprolol Tartrate 50 MG TAB PO SCH (09:59)
--- NOTE | 2018-11-07 15:11 | DIS ---
DATE OF ADMISSION: 11/03/2018 DATE OF DISCHARGE: 11/07/2018 PRIMARY CARE PHYSICIAN: Cesario Call Admission. DISCHARGE DISPOSITION: Detention Unit. PRIMARY DISCHARGE DIAGNOSES: 1. Acute respiratory failure with hypoxia. 2. Sepsis with acute organ dysfunction. 3. Community-acquired pneumonia. 4. Human metapneumovirus infection. SECONDARY DISCHARGE DIAGNOSES: 1. Paroxysmal atrial fibrillation. 2. Chronic anticoagulation. 3. Obesity with BMI 33. 4. History of aortic valve replacement. PRIMARY PROCEDURE/OPERATION: None. RADIOLOGICAL INVESTIGATION: Chest x-ray showed left lower lobe pneumonia. Repeat chest x-ray showed improvement in left lower lobe pneumonia. SIGNIFICANT LABS: CBC was consistent with pancytopenia which is chronic. BMP was unremarkable. Blood culture negative. Virus panel positive for human metapneumovirus. DISCHARGE MEDICATIONS: The patient is given prescription for 1. Omnicef 300 mg p.o. b.i.d. for 7 more days. 2. Florastor 250 mg p.o. daily for 7 days. 3. Mucinex 600 mg twice daily for 7 days. The patient will continue all his previous home medication without any change. CONTRAINDICATION: None. CODE STATUS: Full code. 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 ALLERGIES: NO KNOWN DRUG ALLERGIES. DISCHARGE PLAN: Post hospital, the patient will follow up with primary care physician after rehabilitation. HOSPITAL COURSE: An 88-year-old male with above-mentioned medical problem, who was admitted by me on November 03, 2018. Please see my HPI for further details. He was having cough, shortness of breath, fever. He was meeting sepsis criteria. He had hypoxic respiratory failure. His chest x-ray was consistent with left lower lobe pneumonia. While in hospital, we treated him with oxygen, Mucinex, Solu-Medrol, DuoNeb therapy, and antibiotic therapy with cefepime and Levaquin. This patient also had supratherapeutic INR and that is why we have to hold warfarin therapy. By the time of discharge, the patient's INR is also supratherapeutic and that is why we advised at senior living that they will monitor PT/INR every other day and they will restart warfarin therapy at lower dose whenever INR is therapeutic. The patient had repeat chest x-ray, which showed improvement in his infiltration. He has human metapneumovirus infection as well and that required supportive care only. His oxygen requirement completely reduced and he is on room air. He is ambulatory with physical therapy. He has physical weakness and that is why family member requested jail home placement and with the help of case folder, we arranged jail home for him. The patient is seen and examined at bedside today. REVIEW OF SYSTEMS: All review of system reviewed with him and negative. Please see my progress note from today for further detail. Paper work for discharge done and discharge medication reconciliation done. Plan of care discussed with the family member. We recommended to senior living that they should monitor PT/INR every other day and whenever INR is reaching to 3 range, at that time, they should restart warfarin 2 mg daily and then transition to his normal dose of warfarin therapy after discontinuation of antibiotic therapy. Total time spent on discharge day 31 minutes. Job ID: [id number] MTDD
[2018-11-07 16:01] VITALS: BP 143/69; TEMP 97.6
[2018-11-07] MEDS ORDERED: Warfarin Sodium 2 MG TAB PO SCH (17:00)
== END 2018-11-07 16:35 | DRG 871 ==
LOC: ERS 22:48 → ERHOLD 11-03 00:42 → 2SE 11-03 17:00
PROVIDERS: ADMIT Internal Medicine; ATTEND Internal Medicine
DX: A41.9 Sepsis, unspecified organism (principal); J15.9 Unspecified bacterial pneumonia; J96.01 Acute respiratory failure with hypoxia; N17.9 Acute kidney failure, unspecified; D61.818 Other pancytopenia; D69.6 Thrombocytopenia, unspecified; I48.2 Chronic atrial fibrillation; E78.5 Hyperlipidemia, unspecified; E66.9 Obesity, unspecified; Z68.34 Body mass index [BMI] 34.0-34.9, adult; N40.0 Benign prostatic hyperplasia without lower urinary tract symptoms; Z95.2 Presence of prosthetic heart valve; Z79.01 Long term (current) use of anticoagulants; I25.10 Atherosclerotic heart disease of native coronary artery without angina pectoris; I07.1 Rheumatic tricuspid insufficiency
CPT/HCPCS: 36415; 71045; 71046; 80048; 80053; 80162; 82533; 82553; 83605; 83690; 83735; 83880; 84484; 85025; 85610; 85730; 87040; 87633; 93005; 94640; 96361; 96365; 96366; 96367; 96372; 99214; G0463; J0456; J0692; J0696; J1956; J2765; J2920; J7050; J7620

== ENCOUNTER 2018-12-20 09:14 | Day surgery (SDC) | payer MEDICARE, OTHER ==
[2018-12-19 16:01] VITALS: BMI 33.0
[2018-12-20] MEDS ORDERED: PROPOFOL 20 ML ONE (10:27)
[2018-12-20 10:38] LABS: Hemoglobin 10.4 g/dL (14.0-18.0); Mean Corpuscular HGB CONC 32.3 g/dL (32.0-36.0); Mean Corpuscular Hemoglobin 30.4 pg (27.0-31.0); Mean Corpuscular Volume 94.3 fL (78.0-98.0); Mean Platelet Volume 9.4 fL (7.4-10.4); Platelet Count 65 thou/uL (130-400); White Blood Cell (WBC) Count 4.4 thou/uL (4.8-10.8)
[2018-12-20 10:42] LABS: INR-International Normal Ratio 2.8; PTT 49.7 SEC (22.9-36.1); Prothrombin Time 29.2 SEC (12.0-14.7)
[2018-12-20 10:55] LABS: Anion Gap 13 mmol/L (10-20); BUN (Urea Nitrogen) 15 mg/dL (8.4-25.7); Calc. Creatinine Clearance 65 mL/min (70-130); Calcium 9.3 mg/dL (7.8-10.44); Carbon Dioxide 26 mmol/L (23-31); Chloride 103 mmol/L (98-107); Estimated GFR-MDRD 57; Glucose 102 mg/dL (83-110); Potassium 4.5 mmol/L (3.5-5.1); Sodium 137 mmol/L (136-145)
[2018-12-20 11:10] LABS: Band 2 % (5-11); Lymphocytes 36 % (21-51); MDiff Complete? YES; Monocytes 12 % (0-10); Neutrophil 50 % (42-75); Platelet Morphology Comment Appears Decreased; Polychromasia SLIGHT = 2-3 cells (100X) (0-2/hpf)
--- NOTE | 2018-12-20 13:07 | OP ---
DATE OF PROCEDURE: 12/20/2018 PROCEDURE PERFORMED: Elective cardioversion. PREOPERATIVE DIAGNOSIS: Atrial fibrillation. POSTOPERATIVE DIAGNOSIS: Persistent atrial fibrillation. PROCEDURE IN DETAIL: Mr. Bauer came to the perioperative room in the postobstructive state. Informed consent was obtained. A time-out was called. The patient was sedated by member of the anesthesia staff. Once the patient was adequately sedated, a single 200 Joule biphasic shock was delivered through the anterior and posterior chest wall resulting in an exceptionally normal sinus rhythm with frequent atrial premature beats. The patient tolerated the procedure and was awoken from anesthetic without any difficulty. CONCLUSION: 1. Persistent atrial fibrillation. 2. Successful cardioversion for atrial fibrillation. RECOMMENDATIONS: The patient will continue his anticoagulant therapy with antiarrhythmic drugs and follow up with Electrophysiology in 6 to 8 weeks. Job ID: [id number]
[2018-12-20] MEDS ORDERED: PROPOFOL 200 MG/20 ML VIAL ONE (15:46)
--- NOTE | 2018-12-20 17:06 | EKG ---
Test Reason : PREOP CARDIOVERSION Blood Pressure : / mmHG Vent. 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
--- NOTE | 2018-12-20 17:08 | EKG ---
Test Reason : POST CARDIOVERSION Blood Pressure : / mmHG Vent. 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
--- NOTE | 2018-12-20 17:08 | EKG ---
Test Reason : POST CARDIOVERSION Blood Pressure : / mmHG Vent. 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
== END 2018-12-20 11:52 | disposition home or self-care (01) ==
LOC: CCL 09:14
PROVIDERS: ATTEND Specialist
PROC: 5A2204Z Restoration of Cardiac Rhythm, Single (ICD-10-PCS; principal; 2018-12-20)
DX: I48.1 Persistent atrial fibrillation (principal); I10 Essential (primary) hypertension; E78.5 Hyperlipidemia, unspecified; N40.0 Benign prostatic hyperplasia without lower urinary tract symptoms; E66.9 Obesity, unspecified; Z68.33 Body mass index [BMI] 33.0-33.9, adult; Z79.01 Long term (current) use of anticoagulants; Z79.899 Other long term (current) drug therapy; Z95.5 Presence of coronary angioplasty implant and graft
CPT/HCPCS: 36415; 80048; 85025; 85610; 85730; 92960; 93005; 93010; J2704

== ENCOUNTER 2020-12-02 07:42 | Outpatient (CLI) | payer MEDICARE ==
--- NOTE | 2020-12-02 08:21 | RAD ---
PA AND LATERAL VIEWS CHEST: Date: 12/02/2020 HISTORY: Cough. Pleuritic chest pain. COMPARISON: 11/13/2018. FINDINGS: Changes of median sternotomy are again seen. The heart size is normal. There is consolidation/atelect atic change at the left lung base with accompanying moderate size left pleural effusion. The right lana ng is clear. No pneumothoraces are seen. There are degenerative changes in the spine. IMPRESSION: Left pleural effusion with adjacent atelectatic change/consolidation. POS: OFF
== END 2020-12-02 07:43 | disposition home or self-care (01) ==
LOC: SCSRAD 07:42
PROVIDERS: ATTEND Internal Medicine Cardiovascular Disease
DX: R07.81 Pleurodynia (principal); J90 Pleural effusion, not elsewhere classified
CPT/HCPCS: 36415; 71046; 80048

== ENCOUNTER 2020-12-20 10:11 | Emergency (ER) | payer MEDICARE ==
[2020-12-20 12:37] LABS: ALT (SGPT) 16 U/L (8-55); AST (SGOT) 29 U/L (5-34); Albumin 4.3 g/dL (3.4-4.8); Alkaline Phosphatase 95 U/L (40-110); Anion Gap 14 mmol/L (10-20); BUN (Urea Nitrogen) 20 mg/dL (8.4-25.7); Calc. Creatinine Clearance 0 mL/min (70-130); Calcium 9.4 mg/dL (7.8-10.44); Carbon Dioxide 30 mmol/L (23-31); Chloride 94 mmol/L (98-107); Glucose 92 mg/dL (83-110); Potassium 4.2 mmol/L (3.5-5.1); Protein, Total 8.3 g/dL (5.8-8.1); Sodium 134 mmol/L (136-145)
[2020-12-20 12:38] LABS: Band 2 % (5-11); Lymphocytes 22 % (21-51); MDiff Complete? YES; Mean Corpuscular HGB CONC 31.8 g/dL (32.0-36.0); Mean Corpuscular Hemoglobin 30.5 pg (27.0-31.0); Mean Corpuscular Volume 95.8 fL (78.0-98.0); Mean Platelet Volume 11.3 fL (7.4-10.4); Monocytes 21 % (0-10); Myelocyte 1 % (0-0); Neutrophil 54 % (42-75); Platelet Count 76 thou/uL (130-400); Platelet Morphology Comment Appears Decreased; Polychromasia SLIGHT = 2-3 cells (100X) (0-2/hpf); RBC Distribution Width 17.1 % (11.5-14.5); Red Blood Cell (RBC) Count 3.61 mill/uL (4.70-6.10); White Blood Cell (WBC) Count 3.7 thou/uL (4.8-10.8)
--- NOTE | 2020-12-20 12:38 | RAD ---
Exam: Chest one view HISTORY:Pleural effusion. Shortness of breath. Comparison: 12/02/2020, 11/02/2018 FINDINGS: Cardiac silhouette:Stable sternotomy wires Aorta: Stable atherosclerosis Pulmonary vessels: Normal Costophrenic angles: Bilateral pleural effusions, left greater than right LUNGS: Bibasilar lung parenchymal opacities. Pneumothorax: None Osseous abnormalities: None IMPRESSION: Bibasilar pleural and parenchymal changes
[2020-12-20] MEDS ORDERED: Furosemide 20 MG/2 ML VIAL ONE (14:26)
== END 2020-12-20 15:03 | disposition home or self-care (01) ==
LOC: ERS 10:11
DX: I11.0 Hypertensive heart disease with heart failure (principal); I50.9 Heart failure, unspecified; I25.10 Atherosclerotic heart disease of native coronary artery without angina pectoris; I48.91 Unspecified atrial fibrillation
CPT/HCPCS: 36415; 71045; 80053; 83880; 84484; 85025; 93005; 96372; J1940

== ENCOUNTER 2020-12-27 07:31 | Outpatient (CLI) | payer MEDICARE ==
--- NOTE | 2020-12-27 08:12 | RAD ---
2 view chest: [12/27/2020] Comparison:12/02/2020 HISTORY: Evaluate pleural effusions FINDINGS: Stable midline sternotomy wires. Stable enlargement of the cardiac silhouette. No pneumotho rax is noted. No discrete right-sided pleural effusion. Stable small/moderate-sized left pleural effusion with partial nonspecific opacification of the left lower lobe and lingula. IMPRESSION: Stable small/moderate nonspecific left pleural effusion.
[2020-12-27 14:18] LABS: ALT (SGPT) 16 U/L (8-55); AST (SGOT) 27 U/L (5-34); Albumin 4.2 g/dL (3.4-4.8); Alkaline Phosphatase 86 U/L (40-110); Anion Gap 16 mmol/L (10-20); BUN (Urea Nitrogen) 16 mg/dL (8.4-25.7); Bilirubin, Total 1.8 mg/dL (0.2-1.2); Calc. Creatinine Clearance 0 mL/min (70-130); Calcium 9.7 mg/dL (7.8-10.44); Carbon Dioxide 32 mmol/L (23-31); Cardiac Risk 2.5 (Less than 4.5); Chloride 96 mmol/L (98-107); Cholesterol 89 mg/dl (< 200 Desired); Globulin 3.7 g/dL (2.4-3.5); Glucose 101 mg/dL (83-110); HDL Cholesterol 35 mg/dL (>60 Neg Risk); LDL Cholesterol, Calculated 44 mg/dL; Potassium 4.4 mmol/L (3.5-5.1); Protein, Total 7.9 g/dL (5.8-8.1); Sodium 140 mmol/L (136-145); Triglycerides 49 mg/dL (Less than 150)
== END 2020-12-27 07:32 | disposition home or self-care (01) ==
LOC: SCSRAD 07:31
PROVIDERS: ATTEND Internal Medicine Cardiovascular Disease
DX: R07.81 Pleurodynia (principal); E78.00 Pure hypercholesterolemia, unspecified; J90 Pleural effusion, not elsewhere classified
CPT/HCPCS: 36415; 71046; 80053; 80061

== ENCOUNTER 2021-01-24 07:39 | Outpatient (CLI) | payer MEDICARE | END 2021-01-24 07:40 | disposition home or self-care (01) | LOC: SCSRAD 07:39 | PROVIDERS: ATTEND Internal Medicine Cardiovascular Disease | DX: J90 Pleural effusion, not elsewhere classified (principal); Z95.1 Presence of aortocoronary bypass graft; I48.20 Chronic atrial fibrillation, unspecified | CPT/HCPCS: 36415; 71046; 80048 ==

== ENCOUNTER 2021-03-02 08:17 | Outpatient (CLI) | payer MEDICARE ==
[2021-03-02 10:47] LABS: Anion Gap 14 mmol/L (10-20); BUN (Urea Nitrogen) 27 mg/dL (8.4-25.7); Calc. Creatinine Clearance 0 mL/min (70-130); Calcium 10.2 mg/dL (7.8-10.44); Carbon Dioxide 33 mmol/L (23-31); Chloride 95 mmol/L (98-107); Glucose 103 mg/dL (83-110); Sodium 138 mmol/L (136-145)
== END 2021-03-02 08:18 | disposition home or self-care (01) ==
LOC: SCSRAD 08:17
PROVIDERS: ATTEND Internal Medicine Cardiovascular Disease
DX: J90 Pleural effusion, not elsewhere classified (principal); R91.8 Other nonspecific abnormal finding of lung field
CPT/HCPCS: 36415; 71046; 80048